=== PATIENT | female | born 1960 | race Two or more races ===

== ENCOUNTER → 2024-08-10 | Outpatient (CLI) | payer MEDICAID, SELFPAY ==
--- NOTE | 2024-08-10 10:00 | XR_ITS ---
Examination: Screening digital mammography, bilateral Computer aided detection 3-D breast Tomosynthesis, bilateral Date and time of exam: August 10, 2024 0952 hours Compared to mammograms dated to August 08, 2015 Indication: Screening Technique: Nonmagnified MLO, CC views of the breasts to been obtained, reconstructed from 3-D Tomosynthesis images. R2 computer aided detection program utilized for evaluation of suspicious masses and/or abnormal calcifications. 3-D Tomosynthesis images obtained. Findings: Scattered areas of fibroglandular density Benign calcifications More prominent poorly defined density in the retroareolar region right breast IMPRESSION: BI-RADS Category 0: Incomplete: Need additional imaging evaluation More prominent density in the retroareolar region right breast, recommend follow-up spot tomographic views retroareolar region right breast on right breast sonography to complete the workup.
== END | disposition home or self-care (01) ==
LOC: CDIM 09:41
PROVIDERS: Referring Provider Family Medicine; Visit Provider Family Medicine
DX: Z12.31 Encounter for screening mammogram for malignant neoplasm of breast (principal); R92.30 Dense breasts, unspecified
CPT/HCPCS: 77063; 77067